=== PATIENT | female | born 1965 | race Caucasian/White ===

== ENCOUNTER 2016-09-29 07:02 | Emergency (ER) | payer OTHER ==
[2016-09-29] MEDS ORDERED: DEXAMETHASONE 10 MG/ML VIAL PO STA (07:42)
[2016-09-29] MEDS ORDERED: CHERRY SYRUP 10 ML UDC PO ONE (07:43)
[2016-09-29] MEDS ORDERED: DEXAMETHASONE 10 MG/ML VIAL ONE (07:43)
== END 2016-09-29 07:51 | disposition home or self-care (01) ==
DX: M54.42 Lumbago with sciatica, left side (principal); J45.909 Unspecified asthma, uncomplicated; I25.2 Old myocardial infarction; M32.9 Systemic lupus erythematosus, unspecified; F17.200 Nicotine dependence, unspecified, uncomplicated
CPT/HCPCS: 99283; A9270

== ENCOUNTER 2016-10-13 13:02 | Outpatient (CLI) | payer OTHER | END 2016-10-13 13:03 | disposition home or self-care (01) | DX: M54.42 Lumbago with sciatica, left side (principal) ==

== ENCOUNTER 2017-04-10 10:35 | Observation (INO) | payer MEDICAID, OTHER ==
[2017-04-10 14:49] LABS: BILIRUBIN,URINE NEGATIVE (NEGATIVE); PH,URINE 5.5 PH (5.0-7.5)
[2017-04-10 14:51] LABS: UA w/ MICROSCOPIC CHARGE YES
[2017-04-10] MEDS ORDERED: ONDANSETRON 4 MG/2 ML VIAL IVP STA (14:55)
[2017-04-10] MEDS ORDERED: FAMOTIDINE 20 MG/50 ML 50 ML IV ONE ×2 (14:55→15:25)
[2017-04-10] MEDS ORDERED: ACETAMINOPHEN 1,000 MG/100 ML 100 ML IV STA (14:55)
[2017-04-10] MEDS ORDERED: SODIUM CHLORIDE FLUSH 0.9% 10 ML SYRINGE IVP ONE (14:58)
[2017-04-10 15:02] LABS: UR CULTURE IF IND NOT INDICATED; WBC,URINE 0-3 /HPF (0-5)
--- NOTE | 2017-04-10 15:02 | ED Physician Documentation ---
History of Present Illness - Stated complaint Stated Complaint: RT ABD PX/VOMIT - Chief complaint Chief Complaint: Abd Pain - Additonal information Additional information: hx from pt 52 female pmhx lupus, kidney stones, ovarian cysts, CAD s/p angioplasty but no stent and no sx since, and Hep C s/p work exposure, pshx ovarian cyst developed ruq pain last night about 7 pm after eating cheese and broccoli soup also has had burning and vomiting acid (told nurse blood but me not blood) after taking NSAID with hx of similar sx after taking NSAID (her celebrex rx was delayed in the mail) subj fever Review of Systems Constitutional: reports: Fever Cardiac: denies: Chest pain / pressure Respiratory: denies: Dyspnea, Cough GI: reports: Abdominal Pain, Nausea, Vomiting. denies: Diarrhea, Hematemesis, Bloody / black stool Endocrine: denies: Easy bruising / bleeding Immunocompromised: denies: Immunocompromised PD PAST MEDICAL HISTORY - Past Medical History Past Medical History: Yes Cardiovascular: [place] Respiratory: Asthma Endocrine/Autoimmune: Systemic lupus erythematosus Musculoskeletal: Chronic back pain - Past Surgical History Past Surgical History: Yes - Present Medications Home Medications: Ambulatory Orders Medication Instructions Recorded Confirmed Propranolol [Inderal] 40 mg PO TID 08/14/16 04/10/17 Celecoxib [Celebrex] 200 mg PO DAILY 04/10/17 04/10/17 Cyclobenzaprine [Flexeril] 10 mg PO TID PRN 04/10/17 04/10/17 - Allergies Allergies/Adverse Reactions: Allergies Allergy/AdvReac Type Severity Reaction Status Date / Time insect venom Allergy Anaphylaxis Verified 04/10/17 10:45 Penicillins Allergy Anaphylaxis Verified 04/10/17 10:45 - Social History Does the pt smoke?: Yes Smoking Status: Current every day smoker Does the pt drink ETOH?: Yes Does the pt have substance abuse?: No - Immunizations Immunizations are current?: Yes - POLST Patient has POLST: No PD ED PE NORMAL - Vitals Vital signs reviewed: Yes - Cardiac Cardiac: RRR - Respiratory Respiratory: No respiratory distress - Abdomen Abdomen: Soft, Other (sig RUQ TTP with + murphys, otherwise neg) - Derm Derm: Normal color - Extremities Extremities: No deformity - Neuro Neuro: Alert and oriented X 3 Results - Vitals Vitals: Vital Signs - 24 hr 08/04/1904/10/17 04/10/17 10:39 13:26 17:49 Temperature 36.7 C 37.0 C 36.5 C Heart Rate 75 64 68 Respiratory 16 17 18 Rate Blood Pressure 157/96 H 133/83 H 129/85 H O2 Saturation 99 99 99 04/10/17 20:21 Temperature Heart Rate 63 Respiratory 18 Rate Blood Pressure 143/67 H O2 Saturation 100 Oxygen O2 Source Room air - EKG (time done) 1809 Rate: Rate (enter#) (64) Rhythm: NSR [place]: Normal Intervals: Normal ND Ischemia: Non specific changes (Q waves V1 V2) - Labs Labs: Laboratory Tests 04/10/17 04/10/17 04/10/17 14:28 14:28 15:15 WBC 7.7 RBC 4.48 Hgb 13.4 Hct 39.8 MCV 88.8 MCH 29.8 MCHC 33.5 RDW 15.3 H Plt Count 239 MPV 9.2 Neut # 4.4 Lymph # 2.5 [place] # 0.5 Eos # 0.2 Baso # 0.0 Absolute Nucleated RBC 0.00 Nucleated RBCs 0.0 Sodium Potassium Chloride Carbon Dioxide Anion Gap BUN Creatinine Estimated GFR (MDRD) Glucose Calcium Total Bilirubin AST ALT Alkaline Phosphatase Total Protein Albumin Globulin Albumin/Globulin Ratio Lipase Urine Color YELLOW Urine Clarity CLEAR Urine pH 5.5 Ur Specific [place] >=1.030 H >=1.030 H Urine Protein NEGATIVE Urine Glucose (UA) NEGATIVE Urine Ketones NEGATIVE Urine Occult Blood MODERATE H Urine Nitrite NEGATIVE Urine Bilirubin NEGATIVE Urine Urobilinogen 0.2 (NORMAL) Ur Leukocyte Esterase NEGATIVE Urine RBC 0-5 Urine WBC 0-3 Ur Squamous Epith Cells MOD Squamous H Urine Bacteria Rare Ur Microscopic Review INDICATED Urine Culture Comments NOT INDICATED Urine HCG, Qual NEGATIVE 04/10/17 15:15 WBC RBC Hgb Hct MCV MCH MCHC RDW Plt Count MPV Neut # Lymph # [place] # Eos # Baso # Absolute Nucleated RBC Nucleated RBCs Sodium 139 Potassium 3.8 Chloride 104 Carbon Dioxide 26 Anion Gap 9.0 BUN 17 Creatinine 0.8 Estimated GFR (MDRD) 76 L Glucose 91 Calcium 9.8 Total Bilirubin 0.5 AST 18 ALT 24 Alkaline Phosphatase 68 Total Protein 8.2 Albumin 4.9 Globulin 3.3 Albumin/Globulin Ratio 1.5 Lipase 29 Urine Color Urine Clarity Urine pH Ur Specific [place] Urine Protein Urine Glucose (UA) Urine Ketones Urine Occult Blood Urine Nitrite Urine Bilirubin Urine Urobilinogen Ur Leukocyte Esterase Urine RBC Urine WBC Ur Squamous Epith Cells Urine Bacteria Ur Microscopic Review Urine Culture Comments Urine HCG, Qual PD MEDICAL DECISION MAKING - ED course ED course: pain and hx bvery c/w biliary dz but labs and sono unremarkable considered gastritis 2/2 NSAID use as well but pain more right sided than expected and no relief with pepcid pain still severe so got a CT and surprisingly it showed acute appendicitis d/w surgeon Dr Leo who will operate tomorrow pt has all penciliin but states she has taken keflex s incident before Departure - Departure Disposition: [facility] DC/Xfer Clinical Impression: Appendicitis Qualifiers: Appendicitis type: acute appendicitis Acute appendicitis type: unspecified acute appendicitis type Qualified Code(s): K35.80 - Unspecified acute appendicitis Condition: Good
[2017-04-10] MEDS ORDERED: ONDANSETRON 4 MG/2 ML VIAL ONE (15:25)
[2017-04-10 15:35] LABS: BASOPHILS % (AUTO) 0.2 %; EOSINOPHILS # (AUTO) 0.2 10^3/uL (0.0-0.7); EOSINOPHILS % (AUTO) 2.8 %; HCT - HEMATOCRIT 39.8 % (37.0-47.0); HGB - HEMOGLOBIN 13.4 g/dL (12.0-16.0); LYMPHOCYTES # (AUTO) 2.5 10^3/uL (1.5-3.5); LYMPHOCYTES % (AUTO) 32.7 %; MEAN CORPUSCULAR HEMOGLOBIN 29.8 pg (27.0-31.0); MEAN CORPUSCULAR HGB CONC 33.5 g/dL (32.0-36.0); MEAN CORPUSCULAR VOLUME 88.8 fL (81.0-99.0); MEAN PLATELET VOLUME 9.2 fL (7.9-10.8); MONOCYTES # (AUTO) 0.5 10^3/uL (0.0-1.0); MONOCYTES % (AUTO) 6.5 %; NEUTROPHILS # (AUTO) 4.4 10^3/uL (1.5-6.6); NEUTROPHILS % (AUTO) 57.8 %; RED BLOOD COUNT 4.48 10^6/uL (4.20-5.40); RED CELL DISTRIBUTION WIDTH 15.3 % (12.0-15.0); UNCORRECTED WHITE BLOOD COUNT 7.7 x10^3/uL; WHITE BLOOD COUNT 7.7 x10^3/uL (4.8-10.8)
[2017-04-10 15:44] LABS: ALBUMIN/GLOBULIN RATIO 1.5 (1.0-2.2); BILIRUBIN,TOTAL 0.5 mg/dL (0.2-1.0); CALCIUM 9.8 mg/dL (8.5-10.3); CREATININE 0.8 mg/dL (0.4-1.0); POTASSIUM 3.8 mmol/L (3.5-5.0); TOTAL PROTEIN 8.2 g/dL (6.7-8.2)
[2017-04-10 16:19] LABS: HCG UR QUAL NEGATIVE
[2017-04-10] MEDS ORDERED: ACETAMINOPHEN 1,000 MG/100 ML 100 ML IV ONE (16:29)
--- NOTE | 2017-04-10 16:42 | Ultrasound Preliminary Report ---
Exam: US Abdomen Limited IMPRESSION: 1. Fatty liver. 2. No cholelithiasis or cholecystitis. [facility] SITE ID: [id number]
--- NOTE | 2017-04-10 16:54 | Ultrasound Report ---
EXAM: ABDOMEN ULTRASOUND LIMITED, RUQ EXAM DATE: 04/10/2017 04:19 PM. CLINICAL HISTORY: Right upper quadrant pain. COMPARISON: None. TECHNIQUE: Real-time scanning was performed with static images obtained. FINDINGS: Liver: Uniform increased echogenicity without focal mass lesions. 17.5 cm. Main portal vein flow: Hep atopetal. Gallbladder: Normal. No stones, wall thickening, or sonographic Hernandez's sign. Biliary System: CBD measures 3.4 mm. No intrahepatic or extrahepatic ductal dilatation. Other: No free fluid. Normal right kidney, 11.4 cm in length. IMPRESSION: 1. Fatty liver. 2. No cholelithiasis or cholecystitis. [facility] Referring Provider Line: [phone] SITE ID: [id number]
[2017-04-10] MEDS ORDERED: HYDROmorphone 1 MG/ML CARPUJECT IVP STA (17:55)
[2017-04-10] MEDS ORDERED: HYDROmorphone 1 MG/ML CARPUJECT ONE (18:00)
[2017-04-10] MEDS ORDERED: IOPAMIDOL-300 100 ML VIAL IVP ONE (20:16)
--- NOTE | 2017-04-10 20:52 | CT Preliminary Report ---
Exam: CT Abdomen/Pelvis W/ IMPRESSION: Findings of acute appendicitis. [facility] SITE ID: [id number]
--- NOTE | 2017-04-10 20:55 | CT Report ---
EXAM: CT ABDOMEN AND PELVIS EXAM DATE: 04/10/2017 08:22 PM. CLINICAL HISTORY: Severe right sided abd pain neg GB sono. COMPARISONS: None. TECHNIQUE: Routine helical CT imaging was performed through the abdomen and pelvis. IV contrast: 80 c c Isovue 300. Enteric contrast: No. Reconstructions: Coronal and sagittal. In accordance with CT protocol optimization, one or more of the following dose reduction techniques w ere utilized for this exam: automated exposure control, adjustment of mA and/or KV based on patient s ize, or use of iterative reconstructive technique. FINDINGS: Lung Bases: Tiny calcified granuloma. No acute infiltrate, consolidation, effusion, or pneumothorax. Liver: Normal. No masses. Gallbladder/Bile Ducts: Unremarkable. Spleen: Normal. Pancreas: Normal. Adrenal Glands: Normal. Kidneys: Normal. No masses or hydronephrosis. Peritoneal Cavity/Bowel: Mildly dilated appendix measuring about 9 mm, mostly fluid-filled, but for s mall amounts of air as well. Probably some enhancement of the appendiceal wall. Minimal infiltration of adjacent fat. Unremarkable other bowel loops. No bowel dilation, free fluid, free air, or lymphade nopathy. Pelvic Organs: Decompressed urinary bladder. Unremarkable uterus. Vasculature: No aneurysms or other significant abnormality. Bones: No significant abnormality. Other: None. IMPRESSION: Findings of acute appendicitis. [facility] Referring Provider Line: [phone] SITE ID: [id number]
[2017-04-10] MEDS ORDERED: cefOXitin 1 GM in SODIUM CHLORIDE 0.9% MINIBAG 100 ML IV STA (21:23)
[2017-04-10] MEDS ORDERED: cefOXitin 2 GM in SODIUM CHLORIDE 0.9% MINIBAG 100 ML IV STA (21:40)
[2017-04-10] MEDS ORDERED: ACETAMINOPHEN 325 MG TABLET PO PRN (22:06)
[2017-04-10] MEDS ORDERED: ONDANSETRON 4 MG/2 ML VIAL IVP PRN (22:06)
[2017-04-10] MEDS ORDERED: LACTATED RINGERS 1,000 ML IV SCH (23:00)
[2017-04-10] MEDS: MORPHINE 2 MG/ML CARPUJECT IVP PRN (23:13)
[2017-04-10] MEDS: SODIUM CHLORIDE FLUSH 0.9% 10 ML SYRINGE IVP PRN ×2 (23:13→23:16)
[2017-04-11] MEDS: SODIUM CHLORIDE FLUSH 0.9% 10 ML SYRINGE IVP PRN (00:48)
[2017-04-11] MEDS: MORPHINE 2 MG/ML CARPUJECT IVP PRN (04:36)
[2017-04-11] MEDS ORDERED: cefOXitin 2 GM in SODIUM CHLORIDE 0.9% MINIBAG 100 ML IV SCH (06:00)
[2017-04-11] MEDS ORDERED: SODIUM CHLORIDE FLUSH 0.9% 10 ML SYRINGE IVP SCH (06:00)
[2017-04-11 07:38] LABS: BASOPHILS % (AUTO) 0.4 %; EOSINOPHILS # (AUTO) 0.2 10^3/uL (0.0-0.7); EOSINOPHILS % (AUTO) 3.8 %; HCT - HEMATOCRIT 38.2 % (37.0-47.0); HGB - HEMOGLOBIN 12.9 g/dL (12.0-16.0); LYMPHOCYTES # (AUTO) 2.1 10^3/uL (1.5-3.5); LYMPHOCYTES % (AUTO) 35.3 %; MEAN CORPUSCULAR HEMOGLOBIN 30.1 pg (27.0-31.0); MEAN CORPUSCULAR HGB CONC 33.8 g/dL (32.0-36.0); MEAN CORPUSCULAR VOLUME 89.2 fL (81.0-99.0); MEAN PLATELET VOLUME 8.8 fL (7.9-10.8); MONOCYTES # (AUTO) 0.4 10^3/uL (0.0-1.0); MONOCYTES % (AUTO) 7.4 %; NEUTROPHILS # (AUTO) 3.1 10^3/uL (1.5-6.6); NEUTROPHILS % (AUTO) 53.1 %; RED BLOOD COUNT 4.28 10^6/uL (4.20-5.40); UNCORRECTED WHITE BLOOD COUNT 5.9 x10^3/uL; WHITE BLOOD COUNT 5.9 x10^3/uL (4.8-10.8)
--- NOTE | 2017-04-11 07:39 | HISTORY & PHYSICAL EXAMINATION ---
DATE OF ADMISSION: 04/10/2017 REASON FOR ADMISSION: Possible acute appendicitis and abdominal pain. HISTORY OF PRESENT ILLNESS: This is a 52-year-old female who presented to the emergency department complaining of right upper quadrant pain, persistent for the past 3 weeks. She also complains of nausea and dry heaving. She denies any fevers or chills. Upon evaluation in the emergency department, ultrasound of the gallbladder was performed, which demonstrated a normal gallbladder. Additionally, her labs were obtained, which demonstrated a normal white blood cell and normal LFTs. Subsequently, a CT scan was obtained of the abdomen and pelvis with IV contrast, which demonstrated a dilated appendix suggestive of acute appendicitis. Subsequently, a surgical consultation was obtained. Upon my evaluation of the patient, she is noted to be laying in bed comfortably. She states that the pain is mostly under her right rib cage and the pain has been present for about 3 weeks now. PAST MEDICAL HISTORY: Significant for lupus and hepatitis. PAST SURGICAL HISTORY: Tubal ligation and removal of ovarian cysts. HOME MEDICATIONS 1. Propanolol 40 mg p.o. 3 times daily. 2. Flexeril 10 mg p.o. 3 times daily. 3. Celebrex 200 mg p.o. daily. ALLERGIES TO MEDICATIONS: PENICILLIN. PHYSICAL EXAMINATION VITAL SIGNS: Temperature is 36.6, blood pressure 158/67, heart rate 89, respiratory rate 18, O2 sat is 93% on room air. GENERAL: The patient is awake, alert, and oriented x3 in no acute distress. She is slightly obese. CARDIOVASCULAR: Regular rate and rhythm. CHEST: Clear to auscultation bilaterally with no rhonchi or wheezing. ABDOMEN: Soft, nondistended, nontender to palpation in the right lower quadrant with very mild tenderness to palpation in the right upper quadrant and no guarding and no rebound. LABORATORY VALUES: White count 7.7, hemoglobin 13.4, hematocrit 39.8, platelets 239. Sodium 139, potassium 3.8, chloride 104, bicarb 26, BUN 17, creatinine 0.8. Total bilirubin 0.5. AST, AT, ALT 24, alk phos 68. ASSESSMENT: This is a 52-year-old female with abdominal pain. PLAN: The patient's physical exam and history do not correlate with acute appendicitis. Additionally, in my review of the CT scan, her appendix does not appear to be markedly inflamed. We will repeat her CBC this morning and if it is not increased, we will start the patient on a diet and if she tolerates this , we will discharge her home. JOB #: [id number] EXT JOB #:[id number] MTDLalit
[2017-04-11] MEDS ORDERED: PANTOPRAZOLE 40 MG TABLET PO PRN (09:56)
[2017-04-11 10:17] VITALS: BP 128/60
--- NOTE | 2017-04-11 13:14 | Discharge Plan ---
Discharge Plan Disposition: 01 Home, Self Care Condition: Good Prescriptions: Pantoprazole [Protonix] 20 mg PO BID PRN #60 tablet PRN Reason: Abdominal Pain Diet: Regular Activity Restrictions: No Restrictions Shower Restrictions: No Driving Restrictions: No Instruction Topics: GERD, GERD Lifestyle Changes, GERD Meds No Smoking: If you smoke, Please STOP! Call for help.
== END 2017-04-11 13:45 | disposition home or self-care (01) ==
LOC: ED 10:35 → OBS 22:06
PROVIDERS: ADMIT Surgery; ATTEND Surgery
DX: R10.11 Right upper quadrant pain (principal); R10.811 Right upper quadrant abdominal tenderness; R11.2 Nausea with vomiting, unspecified; M32.9 Systemic lupus erythematosus, unspecified; I25.10 Atherosclerotic heart disease of native coronary artery without angina pectoris; B19.20 Unspecified viral hepatitis C without hepatic coma; I25.2 Old myocardial infarction; G89.29 Other chronic pain; M54.9 Dorsalgia, unspecified; E66.9 Obesity, unspecified; F17.200 Nicotine dependence, unspecified, uncomplicated; Z88.0 Allergy status to penicillin; Z79.1 Long term (current) use of non-steroidal anti-inflammatories (NSAID); Z98.51 Tubal ligation status; Z87.442 Personal history of urinary calculi; Z87.42 Personal history of other diseases of the female genital tract; Z68.44 Body mass index [BMI] 60.0-69.9, adult
CPT/HCPCS: 36415; 74177; 76705; 80053; 81001; 81025; 83690; 85025; 93005; 96365; 96375; 96376; 99284; A9270; G0378; J0131; J1170; J7120; Q9967; 81003; 87086; 96374

== ENCOUNTER 2017-08-23 14:47 | Emergency (ER) | payer MEDICAID ==
[2017-08-23 15:11] LABS: BILIRUBIN,URINE NEGATIVE (NEGATIVE)
--- NOTE | 2017-08-23 15:16 | ED Physician Documentation ---
History of Present Illness - Stated complaint Stated Complaint: AB PX - Chief complaint Chief Complaint: Abd Pain - Additonal information Additional information: hx from pt 52 f pmhx lupus hep C (occupational exposure) CAD kindey stones and ovarian cysts pshx ovarian cysts and tubal and kindey stones seen in Apr for RUQ pain and wup showed a normal GB but surprisingly acute appy - since sx were atypical pt was observed overnight and her WBC did not rise and her pain was better so she was dced without surgery now she has had mid right abd pain waxinf and waning for 2 days getting worse max 04/12, no fever NVD or urinary sx saw PMD who sent pt to ED for possible appy Review of Systems Constitutional: denies: Fever, Chills Cardiac: denies: Chest pain / pressure Respiratory: denies: Dyspnea GI: reports: Abdominal Pain. denies: Nausea, Vomiting, Diarrhea : reports: Control (tubal ligation). denies: Dysuria, Now EGA Endocrine: denies: Easy bruising / bleeding Immunocompromised: denies: Immunocompromised PD PAST MEDICAL HISTORY - Past Medical History Cardiovascular: [place] Respiratory: Asthma Neuro: None Endocrine/Autoimmune: Systemic lupus erythematosus GI: None : Kidney stones HEENT: None Psych: Anxiety Musculoskeletal: Chronic back pain Derm: None - Past Surgical History Past Surgical History: Yes - Present Medications Home Medications: Ambulatory Orders Medication Instructions Recorded Confirmed Cyclobenzaprine [Flexeril] 10 mg PO DAILY PRN 04/10/17 08/23/17 Celecoxib 100 mg PO BID 04/11/17 08/23/17 HYDROcod/ACETAM 5/325 [[place] 5/325] 1 ea PO Q6H PRN #10 tablet 08/23/17 Ibuprofen [Motrin] 400 mg PO Q6H PRN #30 tablet 08/23/17 Ondansetron Odt [Zofran] 4 mg TL Q6H PRN #10 tablet 08/23/17 Tamsulosin [Flomax] 0.4 mg PO DAILY #7 capsule 08/23/17 - Allergies Allergies/Adverse Reactions: Allergies Allergy/AdvReac Type Severity Reaction Status Date / Time insect venom Allergy Anaphylaxis Verified 04/10/17 10:45 Penicillins Allergy Anaphylaxis Verified 08/23/17 14:54 - Social History Does the pt smoke?: Yes Smoking Status: Light tobacco smoker Does the pt drink ETOH?: Yes Does the pt have substance abuse?: No - Immunizations Immunizations are current?: Yes - POLST Patient has POLST: No PD ED PE NORMAL - Vitals Vital signs reviewed: Yes - Neck Neck: Supple, no meningeal sign - Cardiac Cardiac: RRR - Respiratory Respiratory: No respiratory distress, Clear bilaterally - Abdomen Abdomen: Normal bowel sounds, Soft, Other (TTP msot of r abd inclding but not only mcburneys, no rebound or gaurding) Results - Vitals Vitals: Vital Signs - 24 hr 08/23/17 08/23/17 08/23/17 14:51 15:51 17:27 Temperature 36.3 C L 36.8 C 36.8 C Heart Rate 88 85 76 Respiratory 16 16 16 Rate Blood Pressure 148/96 H 144/95 H 164/88 H O2 Saturation 100 97 100 Oxygen O2 Source Room air - Labs Labs: Laboratory Tests 08/23/17 08/23/17 08/23/17 15:00 15:26 15:26 WBC 9.5 RBC 4.46 Hgb 13.6 Hct 39.5 MCV 88.5 MCH 30.4 MCHC 34.3 RDW 15.0 Plt Count 241 MPV 9.4 Neut # 6.2 Lymph # 2.4 [place] # 0.7 Eos # 0.2 Baso # 0.0 Absolute Nucleated RBC 0.00 Nucleated RBC % 0.0 Sodium 140 Potassium 4.0 Chloride 104 Carbon Dioxide 25 Anion Gap 11.0 BUN 25 H Creatinine 0.9 Estimated GFR (MDRD) 66 L Glucose 104 H Calcium 10.1 Total Bilirubin 0.3 AST 23 ALT 38 Alkaline Phosphatase 57 Total Protein 8.2 Albumin 4.4 Globulin 3.8 Albumin/Globulin Ratio 1.2 Lipase 19 L Serum HCG, Qual Urine Color YELLOW Urine Clarity CLEAR Urine pH 6.0 Ur Specific [place] >=1.030 H Urine Protein NEGATIVE Urine Glucose (UA) NEGATIVE Urine Ketones NEGATIVE Urine Occult Blood MODERATE H Urine Nitrite NEGATIVE Urine Bilirubin NEGATIVE Urine Urobilinogen 0.2 (NORMAL) Ur Leukocyte Esterase NEGATIVE Urine RBC 0-5 Urine WBC 0-3 Ur Squamous Epith Cells FEW Squamous Urine Bacteria Rare Ur Microscopic Review INDICATED Urine Culture Comments NOT INDICATED 08/23/17 15:26 WBC RBC Hgb Hct MCV MCH MCHC RDW Plt Count MPV Neut # Lymph # [place] # Eos # Baso # Absolute Nucleated RBC Nucleated RBC % Sodium Potassium Chloride Carbon Dioxide Anion Gap BUN Creatinine Estimated GFR (MDRD) Glucose Calcium Total Bilirubin AST ALT Alkaline Phosphatase Total Protein Albumin Globulin Albumin/Globulin Ratio Lipase Serum HCG, Qual NEGATIVE Urine Color Urine Clarity Urine pH Ur Specific [place] Urine Protein Urine Glucose (UA) Urine Ketones Urine Occult Blood Urine Nitrite Urine Bilirubin Urine Urobilinogen Ur Leukocyte Esterase Urine RBC Urine WBC Ur Squamous Epith Cells Urine Bacteria Ur Microscopic Review Urine Culture Comments - Rads (name of study) CT AP with PO and IV con Radiology: See rad report (normal - no appendicitis) Departure - Departure Disposition: Home, Self Care Clinical Impression: Renal colic on right side Abdominal pain Qualifiers: Abdominal location: right lower quadrant Qualified Code(s): R10.31 - Right lower quadrant pain Instructions: ED Stone Renal W Colic, ED Abdominal Pain Unkn Cause Follow-Up: Dev Bray PA-C [Primary Care Provider] - Prescriptions: HYDROcod/ACETAM 5/325 [[place] 5/325] 1 ea PO Q6H PRN #10 tablet PRN Reason: Severe Pain Ibuprofen [Motrin] 400 mg PO Q6H PRN #30 tablet PRN Reason: Pain Ondansetron Odt [Zofran] 4 mg TL Q6H PRN #10 tablet PRN Reason: Nausea / Vomiting Tamsulosin [Flomax] 0.4 mg PO DAILY #7 capsule Comments: The CT scan did not show appendicitis this time. The CT scan did not show any acute problems - no bowel infection/perforation/obstruction, no gallbladder infection, no pancreas inflammation, no internal bleeding. There was some blood in your urine so it is possible the pain is due to a kidney stone passing - no stone was seen on CT but the contrast we used to help see your appendix would obscure a small stone in the ureter Given that you don't have appendicitis and don't need surgery, i think it is safe for you to go home. I would recommend motrin for mild pain, vicodin for severe pain, zofran for vomiting, and flomax to relax the ureter and help any kidney stones pass. Please follow up with your PMD next week for a recheck Return to the ER sooner if worse over the holiday weekend Forms: Activity restrictions
[2017-08-23 15:22] LABS: UA w/ MICROSCOPIC CHARGE YES
[2017-08-23 15:23] LABS: UR CULTURE IF IND NOT INDICATED; WBC,URINE 0-3 /HPF (0-5)
[2017-08-23] MEDS ORDERED: IOPAMIDOL-300 50 ML VIAL ONE (15:23)
[2017-08-23] MEDS ORDERED: IOPAMIDOL-300 100 ML VIAL ONE (15:23)
[2017-08-23 15:36] LABS: BASOPHILS % (AUTO) 0.2 %; EOSINOPHILS # (AUTO) 0.2 10^3/uL (0.0-0.7); EOSINOPHILS % (AUTO) 2.1 %; HCT - HEMATOCRIT 39.5 % (37.0-47.0); HGB - HEMOGLOBIN 13.6 g/dL (12.0-16.0); LYMPHOCYTES # (AUTO) 2.4 10^3/uL (1.5-3.5); LYMPHOCYTES % (AUTO) 25.6 %; MEAN CORPUSCULAR HEMOGLOBIN 30.4 pg (27.0-31.0); MEAN CORPUSCULAR HGB CONC 34.3 g/dL (32.0-36.0); MEAN CORPUSCULAR VOLUME 88.5 fL (81.0-99.0); MEAN PLATELET VOLUME 9.4 fL (7.9-10.8); MONOCYTES # (AUTO) 0.7 10^3/uL (0.0-1.0); MONOCYTES % (AUTO) 7.3 %; NEUTROPHILS # (AUTO) 6.2 10^3/uL (1.5-6.6); NEUTROPHILS % (AUTO) 64.8 %; RED BLOOD COUNT 4.46 10^6/uL (4.20-5.40); UNCORRECTED WHITE BLOOD COUNT 9.5 x10^3/uL; WHITE BLOOD COUNT 9.5 x10^3/uL (4.8-10.8)
[2017-08-23 15:49] LABS: ALBUMIN/GLOBULIN RATIO 1.2 (1.0-2.2); BILIRUBIN,TOTAL 0.3 mg/dL (0.2-1.0); CALCIUM 10.1 mg/dL (8.5-10.3); CREATININE 0.9 mg/dL (0.4-1.0); TOTAL PROTEIN 8.2 g/dL (6.7-8.2)
[2017-08-23] MEDS ORDERED: IOPAMIDOL-300 100 ML VIAL IVP ONE (16:49)
[2017-08-23] MEDS ORDERED: IOPAMIDOL-300 50 ML VIAL PO ONE (16:49)
--- NOTE | 2017-08-23 17:26 | CT Preliminary Report ---
Exam: CT ABDOMEN/PELVIS W/ IMPRESSION: Unremarkable abdomen and pelvis CT. [facility] SITE ID: [id number]
[2017-08-23 17:27] VITALS: BP 164/88
--- NOTE | 2017-08-23 17:29 | CT Report ---
EXAM: CT ABDOMEN AND PELVIS EXAM DATE: 08/23/2017 04:46 PM. CLINICAL HISTORY: R abd pain eval appendicitis. COMPARISONS: 04/10/2017 CT. TECHNIQUE: Routine helical CT imaging was performed through the abdomen and pelvis. IV contrast: 50 M L ISOVUE 300. Enteric contrast: No. Reconstructions: Coronal and sagittal. In accordance with CT protocol optimization, one or more of the following dose reduction techniques w ere utilized for this exam: automated exposure control, adjustment of mA and/or KV based on patient s ize, or use of iterative reconstructive technique. FINDINGS: Lung Bases: Unremarkable. Liver: Normal. No masses. Gallbladder/Bile Ducts: Unremarkable. Spleen: Normal. Pancreas: Normal. Adrenal Glands: Normal. Kidneys: Normal. No masses or hydronephrosis. Peritoneal Cavity/Bowel: Normal. No free fluid, free air or adenopathy. No masses or acute inflammato ry process. No evidence of appendicitis. Pelvic Organs: Normal. The bladder and visualized pelvic organs are within normal limits. Vasculature: No aneurysms or other significant abnormality. Bones: No significant abnormality. Other: None. IMPRESSION: Unremarkable abdomen and pelvis CT. [facility] Referring Provider Line: [phone] SITE ID: [id number]
== END 2017-08-23 18:21 | disposition home or self-care (01) ==
LOC: ED 14:47
DX: N23 Unspecified renal colic (principal); R10.31 Right lower quadrant pain; M32.9 Systemic lupus erythematosus, unspecified; B19.20 Unspecified viral hepatitis C without hepatic coma; I25.10 Atherosclerotic heart disease of native coronary artery without angina pectoris; I25.2 Old myocardial infarction; J45.909 Unspecified asthma, uncomplicated; Z87.442 Personal history of urinary calculi; Z87.42 Personal history of other diseases of the female genital tract; F17.200 Nicotine dependence, unspecified, uncomplicated
CPT/HCPCS: 36415; 74177; 80053; 81001; 83690; 84703; 85025; 99284; Q9967; 81003; 87086

== ENCOUNTER 2017-10-22 13:33 | Emergency (ER) | payer MEDICAID ==
[2017-10-22 14:14] LABS: BASOPHILS % (AUTO) 0.3 %; EOSINOPHILS # (AUTO) 0.2 10^3/uL (0.0-0.7); EOSINOPHILS % (AUTO) 1.9 %; HGB - HEMOGLOBIN 13.2 g/dL (12.0-16.0); LYMPHOCYTES # (AUTO) 1.8 10^3/uL (1.5-3.5); LYMPHOCYTES % (AUTO) 18.3 %; MEAN CORPUSCULAR HEMOGLOBIN 30.2 pg (27.0-31.0); MEAN CORPUSCULAR VOLUME 88.9 fL (81.0-99.0); MEAN PLATELET VOLUME 8.9 fL (7.9-10.8); MONOCYTES # (AUTO) 0.8 10^3/uL (0.0-1.0); MONOCYTES % (AUTO) 8.2 %; NEUTROPHILS # (AUTO) 7.1 10^3/uL (1.5-6.6); NEUTROPHILS % (AUTO) 71.3 %; PLT - PLATELET COUNT 221 10^3/uL (130-450); RED BLOOD COUNT 4.36 10^6/uL (4.20-5.40); RED CELL DISTRIBUTION WIDTH 14.7 % (12.0-15.0); WHITE BLOOD COUNT 9.9 x10^3/uL (4.8-10.8)
--- NOTE | 2017-10-22 14:18 | ED Physician Documentation ---
PD HPI ABD PAIN - Stated complaint Stated Complaint: ABD/SIDE PX - Chief complaint Chief Complaint: Abd Pain - History obtained from History obtained from: Patient - History of Present Illness Timing - onset: How many hours ago (1-2), Today Timing - duration: Hours Timing - details: Abrupt onset, Still present Quality: Aching, Sharp, Pain Location: RUQ Radiation: Upper back Improved by: No: Eating, Vomiting Worsened by: Eating Associated symptoms: Nausea. No: Fever, Hematemesis Similar symptoms before: No diagnosis (considering biliary and seeing pcp about hida scan) Review of Systems Constitutional: denies: Fever, Chills Nose: denies: Rhinorrhea / runny nose, Congestion Throat: denies: Sore throat Cardiac: denies: Chest pain / pressure, Palpitations Respiratory: denies: Dyspnea, Cough GI: reports: Abdominal Pain, Nausea, Vomiting. denies: Abdominal Swelling, Constipation, Diarrhea : denies: Dysuria, Frequency Skin: denies: Rash Neurologic: reports: Generalized weakness. denies: Focal weakness, Near syncope PD PAST MEDICAL HISTORY - Past Medical History Cardiovascular: [place] Respiratory: Asthma Neuro: None Endocrine/Autoimmune: Systemic lupus erythematosus GI: None : Kidney stones HEENT: None Psych: Anxiety Musculoskeletal: Chronic back pain Derm: None - Past Surgical History Past Surgical History: Yes - Present Medications Home Medications: Ambulatory Orders Medication Instructions Recorded Confirmed Cyclobenzaprine [Flexeril] 10 mg PO DAILY PRN 04/10/17 08/23/17 Ibuprofen [Motrin] 400 mg PO Q6H PRN #30 tablet 08/23/17 Dicyclomine [Bentyl] 20 mg PO QID PRN #20 capsule 10/22/17 HYDROcod/ACETAM 5/325 [[place] 5/325] 1 tab PO Q6H PRN #15 tablet 10/22/17 Ondansetron Odt [Zofran] 4 mg TL Q6H PRN #15 tablet 10/22/17 - Allergies Allergies/Adverse Reactions: Allergies Allergy/AdvReac Type Severity Reaction Status Date / Time insect venom Allergy Anaphylaxis Verified 10/22/17 13:49 Penicillins Allergy Anaphylaxis Verified 10/22/17 13:49 - Social History Does the pt smoke?: Yes Smoking Status: Light tobacco smoker Does the pt drink ETOH?: Yes Does the pt have substance abuse?: No - Immunizations Immunizations are current?: Yes - POLST Patient has POLST: No PD ED PE NORMAL - Vitals Vital signs reviewed: Yes - General General: Alert and oriented X 3, Well developed/nourished, Other (in pain and holding ruq) - HEENT HEENT: PERRL (nonicteric), Pharynx benign - Neck Neck: Supple, no meningeal sign, No adenopathy - Cardiac Cardiac: RRR, No murmur - Respiratory Respiratory: Clear bilaterally - Abdomen Abdomen: Normal bowel sounds, Soft, Non distended, No organomegaly, Other ( tender epigastric and ruq with local guarding) - Female Female : Deferred - Rectal Rectal: Deferred - Back Back: No CVA TTP - Derm Derm: Normal color, Warm and dry Results - Vitals Vitals: Oxygen O2 Source Room air - Labs Labs: Laboratory Tests 10/22/17 10/22/17 10/22/17 14:03 14:03 14:45 WBC 9.9 RBC 4.36 Hgb 13.2 Hct 38.8 MCV 88.9 MCH 30.2 MCHC 34.0 RDW 14.7 Plt Count 221 MPV 8.9 Neut # 7.1 H Lymph # 1.8 [place] # 0.8 Eos # 0.2 Baso # 0.0 Absolute Nucleated RBC 0.00 Nucleated RBC % 0.0 Sodium 138 Potassium 3.6 Chloride 104 Carbon Dioxide 22 Anion Gap 12.0 BUN 16 Creatinine 0.8 Estimated GFR (MDRD) 76 L Glucose 124 H Calcium 9.3 Total Bilirubin 0.5 AST 22 ALT 30 Alkaline Phosphatase 62 Total Protein 7.7 Albumin 4.4 Globulin 3.3 Albumin/Globulin Ratio 1.3 Lipase 14 L Urine Color YELLOW Urine Clarity HAZY Urine pH 5.5 Ur Specific [place] >=1.030 H Urine Protein NEGATIVE Urine Glucose (UA) NEGATIVE Urine Ketones NEGATIVE Urine Occult Blood MODERATE H Urine Nitrite NEGATIVE Urine Bilirubin NEGATIVE Urine Urobilinogen 0.2 (NORMAL) Ur Leukocyte Esterase NEGATIVE Urine RBC 0-5 Urine WBC 0-3 Ur Squamous Epith Cells FEW Squamous Urine Crystals 11-25 Ca [place] Urine Bacteria None Seen Urine Mucus Few Strands Ur Microscopic Review INDICATED Urine Culture Comments NOT INDICATED - Rads (name of study) ruq u/s Radiology: Final report received (some fatty liver; no acute process. GB and cbd are good) PD MEDICAL DECISION MAKING - ED course Complexity details: reviewed old records (prior finding of appy likely false positive as was better next day. her symptom location and episodic timing suggest biliary colic.), reviewed results, d/w patient Departure - Departure Disposition: 01 Home, Self Care Clinical Impression: Right upper quadrant abdominal pain Condition: Stable Record reviewed to determine appropriate education?: Yes Instructions: ED Abdominal Pain Unkn Cause, ED Abdominal Pain Gallstone Poss Follow-Up: Dev Bray PA-C [Primary Care Provider] - WES ALBARRAN MD [Provider Admit Priv/Credential] - Prescriptions: Dicyclomine [Bentyl] 20 mg PO QID PRN #20 capsule PRN Reason: Spasms HYDROcod/ACETAM 5/325 [[place] 5/325] 1 tab PO Q6H PRN #15 tablet PRN Reason: Pain Ondansetron Odt [Zofran] 4 mg TL Q6H PRN #15 tablet PRN Reason: Nausea / Vomiting Comments: This sounds possibly like gallbladder spasms. Your ultrasound prior CTs did not show any obvious gallstones or other abnormalities in that area. (There had been the finding of an enlarged appendix on that prior scan that was likely just a false positive). No signs of appendicitis on the most recent scan. Your location and character of the pain sounds like gallbladder spasms and this can occur without gallstones. Follow-up with your primary care or the surgery office for potential other testing to look for over spasming of the gallbladder which is an outpatient test. Meanwhile if you have other episodes, use ondansetron for nausea, dicyclomine for spasm, hydrocodone for pain and see if it improves the symptoms. Discharge Date/Time: 10/22/17 17:25
[2017-10-22 14:25] LABS: ALBUMIN 4.4 g/dL (3.2-5.5); ALBUMIN/GLOBULIN RATIO 1.3 (1.0-2.2); BILIRUBIN,TOTAL 0.5 mg/dL (0.2-1.0); CALCIUM 9.3 mg/dL (8.5-10.3); CREATININE 0.8 mg/dL (0.4-1.0); TOTAL PROTEIN 7.7 g/dL (6.7-8.2)
[2017-10-22] MEDS ORDERED: HYDROmorphone 1 MG/ML SYRINGE IVP STA ×2 (14:35→16:29)
[2017-10-22] MEDS ORDERED: KETOROLAC 60 MG/2 ML VIAL IVP STA (14:35)
[2017-10-22] MEDS ORDERED: SODIUM CHLORIDE 0.9% 1,000 ML IV ONE (14:35)
[2017-10-22] MEDS ORDERED: ONDANSETRON 4 MG/2 ML VIAL IVP STA (14:35)
--- NOTE | 2017-10-22 15:55 | Ultrasound Report ---
RIGHT UPPER QUADRANT ULTRASOUND: 10/22/2017 CLINICAL INDICATION: Episodic right upper quadrant pains. COMPARISON: Ultrasound 04/10/2017, CT 08/23/2017. TECHNIQUE: Real-time scanning was performed with branch customer service representative static images obtained. FINDINGS: The liver measures 16.5 cm. Hepatic echogenicity remains increased, compatible with fatty infiltration. No focal parenchymal lesion or intrahepatic biliary dilatation is seen. The common bile duct measures 3 mm. The gallbladder is contracted. No definite cholelithiasis is seen. The right kidney measures 12.6 cm, and demonstrates no hydronephrosis. No free fluid is present. IMPRESSION: STABLE FATTY INFILTRATION OF THE LIVER. NO DEFINITE CHOLELITHIASIS OR BILIARY OBSTRUCTION. TD: 10/22/2017 15:54
[2017-10-22 15:56] LABS: BILIRUBIN,URINE NEGATIVE (NEGATIVE); GLUCOSE, URINE (UA) NEGATIVE (NEGATIVE); KETONES,URINE (UA) NEGATIVE (NEGATIVE); LEUKOCYTE ESTERASE, URINE NEGATIVE (NEGATIVE); NITRITE,URINE NEGATIVE (NEGATIVE); OCCULT BLOOD,URINE MODERATE (NEGATIVE); PH,URINE 5.5 PH (5.0-7.5); PROTEIN,URINE NEGATIVE (NEGATIVE); UROBILINOGEN,URINE 0.2 (NORMAL) E.U./dL (NORMAL)
[2017-10-22 16:11] LABS: CLARITY,URINE HAZY (CLEAR)
[2017-10-22 16:19] LABS: BACTERIA,URINE None Seen /HPF (None Seen); MUCUS,URINE Few Strands; RBC,URINE 0-5 /HPF (0-5); SQUAMOUS EPITHELIAL CELL,UR FEW Squamous (<= Few)
[2017-10-22 16:20] LABS: CRYSTALS,URINE 11-25 Ca Oxalate /LPF
[2017-10-22] MEDS ORDERED: DICYCLOMINE 10 MG CAPSULE PO STA (16:29)
[2017-10-22 17:11] VITALS: BP 129/79
== END 2017-10-22 17:25 | disposition home or self-care (01) ==
LOC: ED 13:33
DX: R10.11 Right upper quadrant pain (principal); I25.2 Old myocardial infarction; J45.909 Unspecified asthma, uncomplicated; M32.9 Systemic lupus erythematosus, unspecified; Z87.442 Personal history of urinary calculi; F17.200 Nicotine dependence, unspecified, uncomplicated
CPT/HCPCS: 36415; 76705; 80053; 81001; 83690; 85025; 99283; 99284; A9270; J1170; 81003; 87086

== ENCOUNTER 2017-11-09 08:27 | Outpatient (CLI) | payer MEDICAID ==
[2017-11-09] MEDS ORDERED: SINCALIDE 5 MCG VIAL ONE (09:58)
[2017-11-09] MEDS ORDERED: SINCALIDE 1.9 MCG in SODIUM CHLORIDE 0.9% 50 ML IV ONE (10:26)
--- NOTE | 2017-11-09 12:07 | Nuclear Medicine Report ---
EXAM: HEPATOBILIARY SCAN WITH CCK/KINEVAC ADMINISTRATION EXAM DATE: 11/09/2017 11:43 AM. CLINICAL HISTORY: ABDOMINAL PAIN, RUQ. COMPARISON: Ultrasound exam 10/22/2017. TECHNIQUE: Following the intravenous administration of 4.9 mCi of Tc99m Mebrofenin, a hepatobiliary s can was done centered on the liver and gallbladder in multiple sequential images and projections. Following the intravenous administration of 1.9 mcg of CCK/ Kinevac over the course of approximately 60 minutes, dynamic imaging was done and the gallbladder ejection fraction was calculated. FINDINGS: Normal extraction of tracer from the blood pool indicating normal hepatocellular function. The liver size and shape is grossly within normal limits. There is activity visualized within the bile ducts, gallbladder, and small bowel within the first gela r. With CCK administration, the gallbladder demonstrates an effective contraction. The gallbladder eject ion fraction is calculated to be 53%, well above the lower limit of normal of 38% for a 60-minute inj ection. The patient did not report symptoms after CCK administration. Positive for enterogastric bile reflux. IMPRESSION: 1. Patent cystic duct. 2. Patent common bile duct. 3. Negative for acute or chronic cholecystitis. 4. Positive for enterogastric bile reflux. 5. Gallbladder ejection fraction of 53%. FLETCHER Referring Provider Line: [phone] SITE ID: [id number]
== END 2017-11-09 08:28 | disposition home or self-care (01) ==
LOC: DI 08:27
PROVIDERS: ATTEND Surgery
DX: K31.89 Other diseases of stomach and duodenum (principal)
CPT/HCPCS: 78227; A9537; J7040

== ENCOUNTER 2017-12-20 06:52 | Day surgery (SDC) | payer MEDICAID ==
[2017-12-20] MEDS ORDERED: LACTATED RINGERS 1,000 ML IV ONE (07:07)
[2017-12-20] MEDS ORDERED: LIDO GARGLE 30 ML BOTTLE ONE (08:25)
[2017-12-20] MEDS ORDERED: MIDAZOLAM 2 MG/2 ML VIAL IVP ONE (08:32)
[2017-12-20] MEDS ORDERED: fentaNYL 250 MCG/5 ML VIAL IVP ONE (08:32)
[2017-12-20] MEDS ORDERED: LIDO GARGLE 30 ML BOTTLE PO ONE (09:12)
[2017-12-20 09:49] VITALS: BP 124/80
== END 2017-12-20 06:53 | disposition home or self-care (01) ==
LOC: SDS 06:52
PROVIDERS: ATTEND Internal Medicine Gastroenterology
PROC: 0DB78ZX Excision of Stomach, Pylorus, Via Natural or Artificial Opening Endoscopic, Diagnostic (ICD-10-PCS; 2017-12-20)
PROC: 0DB38ZX Excision of Lower Esophagus, Via Natural or Artificial Opening Endoscopic, Diagnostic (ICD-10-PCS; 2017-12-20)
PROC: 0DB98ZX Excision of Duodenum, Via Natural or Artificial Opening Endoscopic, Diagnostic (ICD-10-PCS; principal; 2017-12-20 08:15)
DX: K20.9 Esophagitis, unspecified (principal); K29.80 Duodenitis without bleeding; E66.9 Obesity, unspecified
CPT/HCPCS: 43239; 87081; A9270; J3010; J7120; 88305

== ENCOUNTER 2018-01-03 20:18 | Outpatient (CLI) | payer MEDICAID ==
[2018-01-07 12:41] LABS: HEPATITIS C ANTIBODY REACTIVE (NON-REACTIVE)
[2018-01-09 15:15] LABS: HCV RNA QNT 6.61 Log IU/mL (NOT DETECTED); HCV RNA QUANT RT PCR 4070000 IU/mL (NOT DETECTED)
== END 2018-01-03 20:19 | disposition home or self-care (01) ==
LOC: LAB.N 20:18
PROVIDERS: ATTEND Physician Assistant Medical
DX: B19.20 Unspecified viral hepatitis C without hepatic coma (principal)
CPT/HCPCS: 36415; 86803; 87522

== ENCOUNTER 2018-03-03 08:09 | Emergency (ER) | payer MEDICAID ==
--- NOTE | 2018-03-03 08:48 | ED Physician Documentation ---
History of Present Illness - Stated complaint Stated Complaint: LEFT SHOULDER PX - Chief complaint Chief Complaint: Ext Problem - Additonal information Additional information: hx from pt injured shoulder about 8 weeks ago doing weights and pushups has tried assorted NSAIDS mm relaxants lido patches, TENS sling ice rest etc s relief hurts to ABD especially acutely worse now thinks it may be broken or out of place no CP SOA denies preg Review of Systems Constitutional: denies: Fever Cardiac: denies: Chest pain / pressure Respiratory: denies: Dyspnea : denies: Now EGA Musculoskeletal: reports: Joint pain (L shoulder) PD PAST MEDICAL HISTORY - Past Medical History Past Medical History: Yes Cardiovascular: [place] Respiratory: Asthma Endocrine/Autoimmune: Systemic lupus erythematosus GI: GERD, Hepatitis : Kidney stones HEENT: None Psych: Anxiety Musculoskeletal: Chronic back pain Derm: None - Past Surgical History Past Surgical History: Yes /ENVIRONMENTAL ADVISOR: Tubal ligation - Present Medications Home Medications: Ambulatory Orders Medication Instructions Recorded Confirmed Cyclobenzaprine [Flexeril] 10 mg PO DAILY PRN 04/10/17 12/20/17 - Allergies Allergies/Adverse Reactions: Allergies Allergy/AdvReac Type Severity Reaction Status Date / Time insect venom Allergy Anaphylaxis Verified 03/03/18 08:28 Penicillins Allergy Anaphylaxis Verified 03/03/18 08:28 - Social History Does the pt smoke?: Yes Smoking Status: Current every day smoker Does the pt drink ETOH?: Yes Does the pt have substance abuse?: No - Immunizations Immunizations are current?: Yes - POLST Patient has POLST: No PD ED PE NORMAL - Vitals Vital signs reviewed: Yes - General General: Alert and oriented X 3 - Cardiac Cardiac: RRR - Respiratory Respiratory: No respiratory distress - Abdomen Abdomen: Non tender - Extremities Extremities: Other (L shoulder: mild swelling, not red or warm, able to extendut pain with any attempted ABDuction, pain radiates down raidal aspect of bicep, MSVV intact) Results - Vitals Vitals: Vital Signs - 24 hr 03/03/18 08:15 Temperature 36.4 C L Heart Rate 82 Respiratory 18 Rate Blood Pressure 119/82 H O2 Saturation 97 Oxygen O2 Source Room air - Rads (name of study) shoulder Radiology: See rad report (degen changes and possible prior AC injury) PD MEDICAL DECISION MAKING - ED course ED course: pt declines lido apap motrin - Sepsis Event Vital Signs: Vital Signs - 24 hr 03/03/18 08:15 Temperature 36.4 C L Heart Rate 82 Respiratory 18 Rate Blood Pressure 119/82 H O2 Saturation 97 Oxygen O2 Source Room air Departure - Departure Disposition: 01 Home, Self Care Clinical Impression: AC joint arthropathy Rotator cuff (capsule) sprain Qualifiers: Encounter type: initial encounter Laterality: left Qualified Code(s): S43.422A - Sprain of left rotator cuff capsule, initial encounter Condition: Good Instructions: ED Sprain AC Joint, ED Tendinitis Rotator Cuff Follow-Up: Dev Bray PA-C [Primary Care Provider] - [facility] [Provider Group] Comments: Your exam suggests a rotator cuff injury The xray does not show any broken bones but there are findings that you may have injured your AC joint in the past. Recommend follow up with orthopedics for further evaluation and consideration of a MRI Physical therapy may be very helpful as well - call your insurance company for information on how to access May wear the sling as needed for comfort but need to do some range of motrion every few hours to prevent scar tissue and "freezing" of the joint Continue motrin, muscle relaxants, lidocaine patches, and TENS for the pain Forms: Activity restrictions
--- NOTE | 2018-03-03 09:26 | XRAY Report ---
Procedure Date: 03/03/2018 Accession Number: [id number] / [id number] Procedure: XR - Shoulder 3 View LT CPT Code: FULL RESULT: EXAM: LEFT SHOULDER RADIOGRAPHY EXAM DATE: 03/03/2018 09:09 AM. CLINICAL HISTORY: Shoulder pain. COMPARISON: None. TECHNIQUE: 3 views. FINDINGS: Bones: Normal. No fracture or bone lesion. Joints: Amorphous calcification at the acromioclavicular joint. The glenohumeral joint is unremarkable. Soft tissues: The visualized hemithorax is unremarkable. No soft tissue swelling. IMPRESSION: Mild degenerative changes versus sequela of prior injury in the acromioclavicular joint. RADIA
[2018-03-03] MEDS ORDERED: KETOROLAC 60 MG/2 ML VIAL IM STA (09:43)
[2018-03-03 10:16] VITALS: BP 131/96
== END 2018-03-03 10:23 | disposition home or self-care (01) ==
LOC: ED 08:09
DX: S43.422A Sprain of left rotator cuff capsule, initial encounter (principal); X50.9XXA Other and unspecified overexertion or strenuous movements or postures, initial encounter; Y93.B2 Activity, push-ups, pull-ups, sit-ups; M13.812 Other specified arthritis, left shoulder; M32.9 Systemic lupus erythematosus, unspecified; K75.9 Inflammatory liver disease, unspecified; I25.2 Old myocardial infarction
CPT/HCPCS: 96372; 99283

== ENCOUNTER 2018-05-03 13:59 | Outpatient (CLI) | payer MEDICAID ==
--- NOTE | 2018-05-16 13:33 | XRAY Report ---
Reason: PNEUMONIA Procedure Date: 05/03/2018 Accession Number: [id number] / [id number] Procedure: XR - Chest 2 View X-Ray CPT Code: 64702 FULL RESULT: EXAM: CHEST RADIOGRAPHY EXAM DATE: 05/03/2018 02:15 PM. CLINICAL HISTORY: Pneumonia. COMPARISON: None. TECHNIQUE: 2 views. FINDINGS: Lungs/Pleura: No focal opacities evident. No pleural effusion. No pneumothorax. Normal volumes. Mediastinum: Heart and mediastinal contours are unremarkable. Other: None. IMPRESSION: No pneumonia. RADIA
== END 2018-05-03 14:00 | disposition home or self-care (01) ==
LOC: DI.N 13:59
PROVIDERS: ATTEND Physician Assistant Medical
DX: J15.7 Pneumonia due to Mycoplasma pneumoniae (principal)
CPT/HCPCS: 71046